=== PATIENT | female | born 1995 | race Caucasian/White ===

== ENCOUNTER 2016-12-02 17:52 | Emergency (ER) | payer OTHER ==
[2016-12-02] MEDS ORDERED: NS 0.9% 1000 ML* 1,000 ML IV ONE (17:56)
[2016-12-02] MEDS ORDERED: Morphine INJ* 4 MG/ML 1 ML CARPUJECT IV ONE (17:56)
--- NOTE | 2016-12-02 19:07 | RAD ---
INDICATION: Right upper quadrant pain. COMPARISON: There are no prior studies available for comparison. TECHNIQUE: Multiple real-time images of the right upper quadrant were obtained. FINDINGS: The gallbladder appear normal. No gallbladder wall thickening or pericholecystic fluid is present. No intra or extrahepatic ductal distention is present. The common bile duct measured 0.3 cm in diameter. The liver is normal in size without significant focal abnormality. The pancreas is obscured by overlying bowel gas. The right kidney is normal in size without evidence for hydronephrosis. IMPRESSION: NEGATIVE EXAM.
[2016-12-02 21:01] LABS: Hematocrit 43 % (35-47); Hemoglobin 13.8 g/dl (12.0-16.0); Mean Corpuscular HGB Conc 32 g/dl (31-36); Mean Corpuscular Hemoglobin 27 pg (27-31); Mean Corpuscular Volume 84 fL (80-97); Mean Platelet Volume 9 um3 (7.4-10.4); Red Blood Count 5.13 10^6/ul (4.0-5.4); Red Cell Distribution Width 13 % (10.5-15); White Blood Count 17.8 10^3/ul (3.5-10.8)
[2016-12-02 21:21] LABS: ALT 24 U/L (7-52); AST 19 U/L (13-39); Albumin 4.3 g/dL (3.2-5.2); Alkaline Phosphatase 51 U/L (34-104); Anion Gap 7 mmol/L (2-11); BUN/Creatinine Ratio 18.6 (8-20); Blood Urea Nitrogen 13 mg/dL (6-24); C Reactive Protein 9.18 mg/L (< 5.00); CO2 Carbon Dioxide 23 mmol/L (22-32); Calcium 8.8 mg/dL (8.6-10.3); Chloride 108 mmol/L (101-111); EGFR African American 133.4 (>60); EGFR Non-African American 103.7 (>60); Globulin 2.9 g/dL (2-4); Glucose 108 mg/dL (70-100); Lipase 20 U/L (11.0-82.0); Magnesium 1.7 mg/dL (1.9-2.7); Potassium 4.1 mmol/L (3.5-5.0); Sodium 138 mmol/L (133-145); Total Protein 7.2 g/dL (6.4-8.9)
[2016-12-02] MEDS ORDERED: Iohexol 300* (CONTRAST) 10 ML SDV IV ONE (21:30)
--- NOTE | 2016-12-02 22:31 | RAD ---
INDICATION: Right upper quadrant abdominal pain. COMPARISON: Comparison is made with a prior right upper quadrant ultrasound of the same day. TECHNIQUE: A CT scan of the abdomen and pelvis was performed with intravenous and oral contrast following intravenous injection of 89 ml of Omnipaque 300 nonionic contrast. Contiguous axial sections were obtained from the lung bases through the symphysis pubis. Images were reconstructed in the coronal and sagittal planes. FINDINGS: The lung bases are clear. No pleural effusion is present. The liver and spleen are normal in size without significant focal abnormality. No calcified gallstones are seen. No gallbladder wall thickening is seen. The pancreas appears to be within normal limits. The kidneys and adrenal glands are normal in size. No hydronephrosis is seen. No significant focal renal abnormality is seen. The aorta is normal in caliber and demonstrates homogeneous contrast opacification. No significant enlarged retroperitoneal lymph nodes are seen. The stomach, small and large bowel appear nondistended. There is mild thickening of the wall of the antrum consistent with normal variation or gastritis. The appendix is within normal limits. There is no evidence for diverticulitis. There is increased fluid within the colon consistent with the patient's history of diarrhea. The uterus is anteverted and normal in size. No free intraperitoneal air or fluid is seen. No significant focal osseous abnormality is seen. IMPRESSION: MILD THICKENING OF THE WALL OF THE ANTRUM CONSISTENT WITH GASTRITIS OR UPPER LIMITS OF NORMAL VARIATION NORMAL VARIATION.
--- NOTE | 2016-12-02 22:39 | ED ---
Elvie Bourne Erika, scribed for Jo Gaffney MD on 12/02/16 at 2049 . Abdominal Pain/Female - HPI Summary HPI Summary: Patient is a 21-year-old female presenting to the ED with a CC of sudden-onset abdominal pain starting today at 14:00. She reports that the pain started 1 hour after she ate pasta for lunch. Pain is worst in the RUQ. Associated symptoms include pallor, nausea, and vomiting. Pt denies pain with urination. A0. LNMP 11/25/2016. Hx hyperthyroidism. Denies FHx gallbladder disease. - History of Current Complaint Stated Complaint: NAUSEA,VOMITING,ABD PAIN Time Seen by Provider: 12/02/16 17:53 Hx Obtained From: Patient, EMS ?: No Onset/Duration: Sudden Onset, Lasting Hours, Still Present Timing: Constant Severity Currently: Moderate Location: Discrete At: RUQ Aggravating Factor(s): Food - possibly Alleviating Factor(s): Nothing Associated Signs and Symptoms: Positive: Nausea, Vomiting, Other: - pallor Allergies/Adverse Reactions: Allergies Allergy/AdvReac Type Severity Reaction Status Date / Time No Known Allergies Allergy Verified 12/02/16 18:24 PMH/Surg Hx/FS Hx/Imm Hx Endocrine/Hematology History: Reports: Hx Thyroid Disease - hyperthyroid Denies: Hx Diabetes - Family History Family History: Denies FHx gallbladder disease - Social History Alcohol Use: None Hx Substance Use: No Substance Use Type: Reports: None Hx Tobacco Use: No Smoking Status (MU): Never Smoked Tobacco Review of Systems Constitutional: Other - Pallor Positive: Abdominal Pain, Vomiting, Nausea All Other Systems Reviewed And Are Negative: Yes Physical Exam Triage Information Reviewed: Yes Vital Signs On Initial Exam: Temp Pulse Resp BP Pulse Ox 98.1 F 82 18 105/59 96 12/02/16 17:55 12/02/16 19:36 12/02/16 19:36 12/02/16 19:36 12/02/16 19:36 Vital Signs Reviewed: Yes Appearance: Positive: Well-Appearing, No Pain Distress Skin: Positive: Warm, Skin Color Reflects Adequate Perfusion, Dry Eyes: Positive: EOMI, HAWK ENT: Positive: Pharynx normal, TMs normal Neck: Positive: Supple, Nontender Respiratory/Lung Sounds: Positive: Clear to Auscultation, Breath Sounds Present. Negative: Rales, Rhonchi, Wheezes Cardiovascular: Positive: RRR, Other - No gallops. Negative: Murmur, Rub Abdomen Description: Positive: Soft, Other: - No rebound. RUQ tenderness. Negative: Distended, Guarding Bowel Sounds: Positive: Present Musculoskeletal: Positive: Other - GREY, no edema Neurological: Positive: Sensory/Motor Intact, Alert, Oriented to Person Place, Time, Other - CN II-XII intact Psychiatric: Positive: Affect/Mood Appropriate Diagnostics - Vital Signs Vital Signs Temp Pulse Resp BP Pulse Ox 12/02/16 19:36 82 18 105/59 96 12/02/16 19:35 16 12/02/16 17:55 98.1 F 77 16 111/74 100 - Laboratory Lab Results: Lab Results 12/02/16 12/02/16 Range/Units 20:50 20:50 WBC 17.8 H (3.5-10.8) 10^3/ul RBC 5.13 (4.0-5.4) 10^6/ul Hgb 13.8 (12.0-16.0) g/dl Hct 43 (35-47) % MCV 84 (80-97) fL MCH 27 (27-31) pg MCHC 32 (31-36) g/dl RDW 13 (10.5-15) % Plt Count 284 (150-450) 10^3/ul MPV 9 (7.4-10.4) um3 Neut % (Auto) 93.1 H (38-83) % Lymph % (Auto) 1.1 L (25-47) % [place] % (Auto) 5.3 (1-9) % Eos % (Auto) 0.2 (0-6) % Baso % (Auto) 0.3 (0-2) % Absolute Neuts (auto) 16.6 H (1.5-7.7) 10^3/ul Absolute Lymphs (auto) 0.2 L (1.0-4.8) 10^3/ul Absolute Monos (auto) 0.9 H (0-0.8) 10^3/ul Absolute Eos (auto) 0 (0-0.6) 10^3/ul Absolute Basos (auto) 0.1 (0-0.2) 10^3/ul Absolute Nucleated RBC 0 10^3/ul Nucleated RBC % 0 Sodium 138 (133-145) mmol/L Potassium 4.1 (3.5-5.0) mmol/L Chloride 108 (101-111) mmol/L Carbon Dioxide 23 (22-32) mmol/L Anion Gap 7 (2-11) mmol/L BUN 13 (6-24) mg/dL Creatinine 0.70 (0.51-0.95) mg/dL Est GFR ( Amer) 133.4 (>60) Est GFR (Non-Af Amer) 103.7 (>60) BUN/Creatinine Ratio 18.6 (8-20) Glucose 108 H (70-100) mg/dL Calcium 8.8 (8.6-10.3) mg/dL Magnesium 1.7 L (1.9-2.7) mg/dL Total Bilirubin 0.70 (0.2-1.0) mg/dL AST 19 (13-39) U/L ALT 24 (7-52) U/L Alkaline Phosphatase 51 (34-104) U/L C-Reactive Protein 9.18 H (< 5.00) mg/L Total Protein 7.2 (6.4-8.9) g/dL Albumin 4.3 (3.2-5.2) g/dL Globulin 2.9 (2-4) g/dL Albumin/Globulin Ratio 1.5 (1-3) Lipase 20 (11.0-82.0) U/L Beta HCG, Quant < 0.60 mIU/mL Result Diagrams: 12/02/16 20:50 12/02/16 20:50 Lab Statement: Any lab studies that have been ordered have been reviewed, and results considered in the medical decision making process. - CT CT A/P W/ CT Interpretation Completed By: Radiologist - IMPRESSION: MILD THICKENING OF THE WALL OF THE ANTRUM CONSISTENT WITH GASTRITIS OR UPPER LIMITS OF NORMAL VARIATION. - Ultrasound No standard instances Ultrasound Interpretation Completed By: Radiologist - Gallbladder US - IMPRESSION: NEGATIVE EXAM. Re-Evaluation - Re-Evaluation First Eval Re-Evaluation Time: 22:36 Change: Improved Comment: Pt denies pain now. She will be discharged Abdominal Pain Fem Course/Dx - Course Course Of Treatment: 21 yo sudden onset of abdominal pain resolved in ED u/s and ct neg. wbc elevated likely secondary to emesis. pt comfortable now - Diagnoses Provider Diagnoses: Abdominal pain Discharge - Discharge Plan Condition: Stable Disposition: HOME Patient Education Materials: Gastritis (ED) Referrals: [facility] ROBINA Griffin [Primary Care Provider] - The documentation as recorded by the Elvie jones Erika accurately reflects the service I personally performed and the decisions made by me, Jo Gaffney MD.
[2016-12-02 23:03] VITALS: BP 106/68
== END 2016-12-02 23:02 | disposition home or self-care (01) ==
LOC: ED 17:52
DX: R10.11 Right upper quadrant pain (principal); R11.2 Nausea with vomiting, unspecified
CPT/HCPCS: 36415; 74177; 76705; 80053; 83690; 83735; 84702; 85025; 86140; 96374; 99282; J2270; Q9967